=== PATIENT | male | born 1950 | race Two or more races ===

== ENCOUNTER 2023-06-15 13:03 | Emergency (ER) | payer OTHER, MEDICAID ==
[~2023-06-15] VITALS: Ht 180.3 cm; Wt 68.5 kg
[2023-06-15 15:10] VITALS: BP 136/69; PULSE 83; RESP 18; O2SAT 97
[2023-06-15 16:01] LABS: Urine Bacteria None Seen /hpf (None Seen)
[2023-06-15 16:21] LABS: Urine Blood Negative /uL (Negative); Urine Clarity Clear (Clear); Urine Color Light-Yellow (Yellow); Urine Protein, UAD Negative (Negative); Urine Specific Gravity 1.021 (1.001-1.035); Urine Urobilinogen Normal (Negative); Urine WBC 1 /hpf (0 - 3)
[2023-06-15] MEDS: ACETAMINOPHEN/CODEINE#3 (300/30mg) TAB PO ONE (20:00)
[2023-06-15 20:12] LABS: Basophils # (auto) 0.1 10 ^3/uL (0-0.2); Basophils % (auto) 0.6 % (0.0-2.0); Eosinophils # (auto) 0 10 ^3/uL (0-0.8); Eosinophils % (auto) 0.1 % (0.0-7.0); Hemoglobin 14.1 g/dL (13.5-17.5); Lymphocytes # (auto) 1.2 10 ^3/uL (0.4-5.4); Lymphocytes % (auto) 11.8 % (10.0-50.0); Mean Corpuscular Hemoglobin 30.1 pg (28.0-32.0); Mean Corpuscular Hgb Conc. 32.8 g/dL (32.0-36.0); Mean Corpuscular Volume 91.7 fL (80.0-100.0); Monocytes # (auto) 0.8 10 ^3/uL (0-1.3); Neutrophils # (auto) 8.3 10 ^3/uL (1.6-8.6); Neutrophils % (auto) 79.5 % (37.0-80.0); Red Blood Cells 4.69 10^6/uL (4.5-5.90); Red Cell Distribution Width 14.7 % (11.8-14.3); White Blood Cell 10.4 10^3/uL (4.4-10.8)
[2023-06-15 20:24] LABS: Anion Gap 6 (5-15); Carbon Dioxide 26 mmol/L (20-30); Chloride 106 mmol/L (98-107); Potassium 4.5 mmol/L (3.5-5.1); Sodium 138 mmol/L (136-145)
[2023-06-15 20:30] LABS: BUN/Creatinine Ratio 16.6 (10.0-20.0); Blood Urea Nitrogen 28 mg/dL (9-23); Glucose 122 mg/dL (74-106)
[2023-06-15 20:31] LABS: Lipase 33 U/L (12-53)
[2023-06-15] MEDS ORDERED: ONDANSETRON HCL 4 MG/2 ML VIAL IV PRN (22:45)
[2023-06-15] MEDS ORDERED: DOCUSATE SOD 100 MG CAP PO PRN (22:45)
[2023-06-15] MEDS ORDERED: HYDROcodone-ACET 5/325MG TAB PO PRN (22:45)
[2023-06-15] MEDS ORDERED: ACETAMINOPHEN 325 MG TAB PO PRN (22:45)
[2023-06-15] MEDS ORDERED: hydrALAZINE HCL 20 MG/ML VL IV PRN (22:45)
[2023-06-16] MEDS ORDERED: SODIUM CHLOR 0.9% PF (SALINE LOCK) 10ML VIAL/SYR IV SCH (06:00)
== END 2023-06-16 00:34 | disposition left against medical advice (07) ==
LOC: ER 13:03
DX: N17.9 Acute kidney failure, unspecified (principal); N13.30 Unspecified hydronephrosis
CPT/HCPCS: 36415; 76775; 80048; 81001; 83605; 83690; 85025

== ENCOUNTER 2024-01-07 22:09 | Emergency (ER) | payer OTHER, MEDICAID ==
[~2024-01-07] VITALS: Ht 180.3 cm; Wt 64.4 kg
[2024-01-07 23:49] VITALS: BP 120/60; PULSE 95; RESP 20; TEMP 98.2; O2SAT 98
[2024-01-08] MEDS ORDERED: CEPH500C PO (00:11)
--- NOTE | 2024-01-08 00:11 | ED.PDOC ---
History of Present Illness(SKN HPI Comments 73 year old male presents to ER with complaints of wound check. Patient states he has been experiencing swelling/tenderness/redness to right lower leg x 1 month s/p getting "stung by fire ants". Notes he has been using topical antibiotic cream with slight relief. Denies any current pain. Patient presents t o ER ambulatory on arrival, with steady gait, in no distress. Denies fever, body aches, chills, shortness of breath, calf pain, skin drainage, trauma/falls, ankle pain or any further symptoms/complaints Chief Complaint: Lower Extremity Time Seen by MD: 22:56 Primary Care Provider: FELIBERTO History of Present Illness: Nurses Notes, Medications, Allergies Allergies: Coded Allergies: NO KNOWN ALLERGIES (Unverified , 06/15/23) Home Meds Active Scripts Cephalexin Monohydrate (Cephalexin) 500 Mg Cap, 500 MG PO QID for 7 Days, #28 CAP 0 Refills Prov:DONELL SPRING 01/08/24 Information Source: Patient Mode of Arrival: Ambulatory Tetanus: UTD Past Medical History PAST MEDICAL HISTORY: Denies Surgical History: Denies all surgeries Family History Family History: Unknown Social History Smoker: Non-Smoker Alcohol: Denies ETOH Use Drugs: Denies Drug Use Lives In: Home Constitutional: denies: chills, diaphoresis, fatigue, fever, malaise, sweats, weakness, others EENTM: denies: blurred vision, double vision, ear bleeding, ear discharge, ear drainage, ear pain, ear ringing, eye pain, eye redness, hearing loss, mouth pain, mouth swelling, nasal discharge, nose bleeding, nose congestion, nose pain, photophobia, tearing, throat pain, throat swelling, voice changes, others Respiratory: denies: cough, hemoptysis, orthopnea, SOB at rest, shortness of breath, SOB with excertion, stridor, wheezing, others Cardiovascular: denies: chest pain, dizzy spells, diaphoresis, Dyspnea on exertion, edema, irregular heart beat, left arm pain, lightheadedness, palpitations, PND, syncope, others Gastrointestinal: denies: abdomen distended, abdominal pain, blood streaked bowels, constipated, diarrhea, dysphagia, difficulty swallowing, hematemesis, melena, nausea, poor appetite, poor fluid intake, rectal bleeding, rectal pain, vomiting, others Genitourinary: denies: burning, dysuria, flank pain, frequency, hematuria, incontinence, penile discharge, penile sore, pain, testicle pain, testicle swelling, urgency, others Neurological: denies: dizziness, fainting, headache, left sided numbness, left sided weakness, numbness, paresthesia, pre-existing deficit, right sided numbness, right sided weakness, seizure, speech problems, tingling, tremors, weakness, others Musculoskeletal: denies: back pain, gout, joint pain, joint swelling, muscle pain, muscle stiffness, neck pain, others Integumetry: reports: others (As stated in HPI) Allergic/Immunocompromised: denies: Difficulty Healing, Frequent Infections, Hives, Itching, others Hematologic/Lymphatic: denies: anemia, blood clots, easy bleeding, easy bruising, swollen glands, others Endocrine: denies: excessive hunger, excessive sweating, excessive thirst, excessive urination, flushing, intolerance to cold, intolerance to heat, unexplained weight gain, unexplained weight loss, others Psychiatric: denies: anxiety, bipolar disorder, depression, hopeless, panic disorder, schizophrenia, sleepless, suicidal, others Physical Exam General Appearance: No Apparent Distress HEENT: PERRL/EOMI Neck: Full Range of Motion, Non-Tender, Normal Respiratory: Chest Non-Tender, Lungs Clear, No Accessory Muscle Use, No Respiratory Distress, Normal Breath Sounds Cardiovascular: No Murmur, No Gallop, Regular Rate/Rhythm Breast Exam: Deferred Gastrointestinal: NOT DONE Genitalia: Deferred Pelvic: Deferred Rectal: Deferred Extremities: Normal capillary refill, Normal range of motion Musculoskeletal : Extremity Location: Leg (Mild erythema/swelling/TTP noted to right lower tib/fib. Slight TTP also noted to right calf. No fluctuance/red streaking/drainage noted. No TTP to right ankle noted. Steady gait appreciated) Neurologic: Alert, No Motor Deficits, Normal Affect, Normal Mood, No Sensory Deficits Cerebellar Function: NOT DONE Reflexes: NOT DONE Skin: Dry, Warm Peripheral Pulses: 2+ femoral (R), 2+ femoral (L), 2+ dorsalis pedis (R), 2+ dorsalis pedis (L) Lymphatic: Inguinal Node Tender (R) Was a procedure done? Was a procedure done?: No Sedation Sedation?: No Differential Diagnosis (INTG) Differential Diagnosis: Abrasion Differential Diagnosis: Abscess Differential Diagnosis: Puncture Wound, Other (DVT) X-Ray, Labs, Meds, VS Vital Signs Date Time Temp Pulse Resp B/P (MAP) Pulse Ox O2 Delivery O2 Flow Rate FiO2 01/07/24 23:49 95 20 98 Room Air 01/07/24 23:49 98.2 95 20 120/60 (80) 98 98.2 01/07/24 22:55 98.9 101 18 124/62 (82) 96 Current Medications Medications (Trade) Dose Ordered Sig/Tiana Route Start Time Stop Time Status Last Admin Ceftriaxone Sodium (Rocephin) 1,000 mg ONCE ONCE IM 01/08/24 00:15 01/08/24 00:16 DC 01/08/24 00:21 PATIENT: JED BONDT: [id number]: [id number] : 1950 LOC: ER ROOM / BED: / AGE / SEX: 73 / M ADM STATUS: REG ER SERVICE ORDERING PHYSICIAN: DONELL SPRING PROCEDURE(s): RLDVT - RT Lower DVT REASON: right leg pain/swelling ORDER NUMBER(s): [id number], ACCESSION NUMBER(s): [id number] CLINICAL HISTORY: right leg pain/swelling TECHNIQUE: Color and duplex doppler imaging of the right lower extremity veins was performed. Vessel compression if possible was also performed. WID: COMPARISON: None FINDINGS: Enlarged reactive appearing right inguinal lymph node measuring up to 5.6 cm. Right common femoral vein: Normal compressibility and flow. Right femoral vein: Normal compressibility and flow. Right popliteal vein: Normal compressibility and flow. Proximal calf veins are normally compressible. IMPRESSION: NO SONOGRAPHIC EVIDENCE FOR DEEP VENOUS THROMBOSIS IN THE RIGHT LOWER EXTREMITY VEINS. ATED BY: MAGDY HWANG MD DICTATED DATE/TIME: 01/08/2441 SIGNED BY: MAGDY HWANG MD SIGNED DATE/TIME: 01/08/2441 CC: Rocephin 1 g IM ordered Right lower DVT ultrasound reviewed Patient neurovascularly intact Wound care discussed and advised Advised on rest/ no strenuous activity and elevation Advised to follow up with PCP in 1-2 days Patient verbalized understanding and agreeable with current plan of care Advised to return to ER immediately if symptoms worsen Images Reviewed?: Images reviewed and evaluated by me Time of 1ST Reevaluation: 23:44 Reevaluation 1ST: N/A Patient Education/Counseling: Diagnosis, Treatment, Prognosis, Need For Follow Up Family Education/Counseling: No Family Present Departure 1 Departure Time of Disposition: 00:10 Impression: Primary Impression: Cellulitis of right lower leg Additional Impression: Inguinal lymphadenopathy Disposition: 01 HOME / SELF CARE / HOMELESS Condition: Stable e-Prescriptions Cephalexin Monohydrate (Cephalexin) 500 Mg Cap 500 MG PO QID for 7 Days, #28 CAP 0 Refills Prov: DONELL SPRING 01/08/24 Discharged With: Self Critical Care Note Critical Care Time?: No Stability Stability form required: No Heart Score Heart Score: Heart Score Response (Comments) Value History N/A 0 EKG N/A 0 Age N/A 0 Risk Factors N/A 0 Troponin N/A 0 Total 0 DONELL SPRING Jan 08, 2024 00:11
[2024-01-08] MEDS: cefTRIAXone SOD 1,000 MG VL IM ONE (00:21)
--- NOTE | 2024-01-08 00:44 | DVH ---
CLINICAL HISTORY: right leg pain/swelling TECHNIQUE: Color and duplex doppler imaging of the right lower extremity veins was performed. Vessel compression if possible was also performed. WID: COMPARISON: None FINDINGS: Enlarged reactive appearing right inguinal lymph node measuring up to 5.6 cm. Right common femoral vein: Normal compressibility and flow. Right femoral vein: Normal compressibility and flow. Right popliteal vein: Normal compressibility and flow. Proximal calf veins are normally compressible. IMPRESSION: NO SONOGRAPHIC EVIDENCE FOR DEEP VENOUS THROMBOSIS IN THE RIGHT LOWER EXTREMITY VEINS.
== END 2024-01-08 00:48 | disposition home or self-care (01) ==
LOC: ER 22:09
DX: L03.115 Cellulitis of right lower limb (principal); R59.0 Localized enlarged lymph nodes
CPT/HCPCS: 93971; 96372; 99285; J0696

== ENCOUNTER 2024-01-08 03:59 | Emergency (ER) | payer OTHER, MEDICAID ==
[~2024-01-08 03:59] MED LIST: CEPH500C PO
== END 2024-01-08 04:30 | disposition left against medical advice (07) ==
LOC: ER 03:59
DX: Z00.8 Encounter for other general examination (principal); Z53.21 Procedure and treatment not carried out due to patient leaving prior to being seen by health care provider

== ENCOUNTER 2024-02-23 00:41 | Emergency (ER) | payer OTHER, MEDICAID ==
[~2024-02-23] VITALS: Ht 180.3 cm; Wt 62.3 kg
[2024-02-23 01:08] VITALS: RESP 18; O2SAT 96
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
[2024-02-23] MEDS ORDERED: ACET500T58 PO (01:34)
[2024-02-23] MEDS ORDERED: BACIOIN15 TOP (01:34)
[2024-02-23 04:25] VITALS: BP 119/56; PULSE 87; RESP 14; TEMP 98.5; O2SAT 96
[2024-02-23] MEDS: BACITRACIN TOP OINT 1 UD PKG TOP ONE (04:35)
== END 2024-02-23 04:35 | disposition home or self-care (01) ==
LOC: ER 00:41
DX: S01.511A Laceration without foreign body of lip, initial encounter (principal); S10.91XA Abrasion of unspecified part of neck, initial encounter; Z79.899 Other long term (current) drug therapy; V29.99XA Rider (driver) (passenger) of other motorcycle injured in unspecified traffic accident, initial encounter; Y93.89 Activity, other specified; Y92.89 Other specified places as the place of occurrence of the external cause; Y99.8 Other external cause status